=== PATIENT | male | born 1965 | race Two or more races ===

== ENCOUNTER → 2017-12-11 00:22 | Emergency (ER) | payer MEDICAID, OTHER ==
[~2017-12-11 00:22] MED LIST: Albuterol (2.5 MG) 0.5 % CONC 2.5 MG/0.5 ML NEB.SOLN (ICU and ED only) INH ONE; predniSONE TAB* 20 MG PO ONE
--- NOTE | 2017-12-11 00:42 | ED ---
Asthma - HPI Summary HPI Summary: 52 y/o male BIBA c/o SOB onset 1 hour [employer]. Pt woke up with sudden onset and wheezing. No recent cough, no production, no fevers. Sx alleviated with 1x Duoneb administered by EMS. PMHx asthma, takes inhaler as needed. - History of Current Complaint Chief Complaint: EDShortnessOfBreath Stated Complaint: DIFFICULTY BREATHING Time Seen by Provider: 12/11/17 00:36 Hx Obtained From: Patient Onset/Duration: Sudden Onset Timing: Constant Pain Intensity: 0 Location/Character: Wheezing Aggravating Symptoms: Nothing Alleviating Symptoms: Nothing Associated Signs and Symptoms: Positive: Shortness of Breath - Allergy/Home Medications Allergies/Adverse Reactions: Allergies Allergy/AdvReac Type Severity Reaction Status Date / Time No Known Allergies Allergy Verified 12/11/17 00:35 PMH/Surg Hx/FS Hx/Imm Hx Previously Healthy: No Endocrine/Hematology History: Denies: Hx Diabetes Cardiovascular History: Denies: Hx Congestive Heart Failure Respiratory History: Reports: Hx Asthma Infectious Disease History: No Infectious Disease History: Denies: Traveled Outside the [place] in Last 30 Days - Family History Known Family History: Positive: None - Social History Alcohol Use: None Hx Substance Use: No Substance Use Type: Reports: None Smoking Status (MU): Never Smoked Tobacco Review of Systems Constitutional: Negative Eyes: Negative ENT: Negative Cardiovascular: Negative Positive: Shortness Of Breath, Other - wheezing Gastrointestinal: Negative Genitourinary: Negative Musculoskeletal: Negative Skin: Negative Neurological: Negative Psychological: Normal All Other Systems Reviewed And Are Negative: Yes Physical Exam - Summary Physical Exam Summary: Appearance: Well-appearing, Well-nourished, lying in bed comfortably Skin: Warm, dry, no obvious rash Eyes: sclera anicteric, no conjunctival pallor ENT: mucous membranes moist, pharynx appears normal Neck: Supple, nontender Respiratory: Clear to auscultation, no signs of respiratory distress Cardiovascular: Normal S1, S2. No murmurs. Normal distal pulses in tibial and radial bilaterally. Abdomen: Soft, nontender, normal active bowel sounds present Musculoskeletal: Normal, Strength/ROM Intact Neurological: A&Ox3, awake and alert, mentation is normal, speech is fluent and appropriate Psychiatric: affect is normal, does not appear anxious or depressed Triage Information Reviewed: Yes Vital Signs On Initial Exam: Initial Vitals Temp Pulse Resp BP Pulse Ox 98.3 F 118 22 149/93 92 12/11/17 00:31 12/11/17 00:31 12/11/17 00:31 12/11/17 00:31 12/11/17 00:31 Vital Signs Reviewed: Yes Diagnostics - Vital Signs Vital Signs Temp Pulse Resp BP Pulse Ox 12/11/17 00:31 98.3 F 118 22 149/93 92 - Laboratory Lab Statement: Any lab studies that have been ordered have been reviewed, and results considered in the medical decision making process. - Radiology Chest XRay Xray Interpretation: No Acute Changes Radiology Interpretation Completed By: ED Physician - Radiologist has not yet reviewed this report. Asthma Course/Dx - Diagnoses Provider Diagnoses: Asthma exacerbation Discharge - Sign-Out/Discharge Documenting (check all that apply): Patient Departure - Discharge Plan Condition: Improved Disposition: HOME Prescriptions: predniSONE [Prednisone 20 MG TAB] 40 mg PO DAILY 5 Days #10 tablet Patient Education Materials: Asthma (ED) Print Language: LATVIAN Referrals: [facility] [Outside] - 3 Days (if not better) - Billing Disposition and Condition Condition: IMPROVED Disposition: Home - Attestation Statements Document Initiated by Scribe: Yes Documenting Scribe: Nick Price Provider For Whom Scribe is Documenting (Include Credential): Binh Aguilar MD Scribe Attestation: Nick Linder, scribed for Binh Aguilar MD on 12/13/17 at 1422. Scribe Documentation Reviewed: Yes Provider Attestation: The documentation as recorded by the Nick valle accurately reflects the service I personally performed and the decisions made by me, Binh Aguilar MD
[2017-12-11 02:10] VITALS: BP 142/94
--- NOTE | 2017-12-11 08:52 | RAD ---
Indication: Dyspnea. 2 views of the chest including dual energy PA views demonstrate no mediastinal shift. Heart is of normal size and configuration. Lung quach appear clear. No prior study is available for comparison. IMPRESSION: No active cardiopulmonary disease is noted. R0
== END | disposition home or self-care (01) ==
LOC: ED 00:22
DX: J45.901 Unspecified asthma with (acute) exacerbation (principal)
CPT/HCPCS: 71046; 99283; J7512; J7611